=== PATIENT | female | born 1970 | race Caucasian/White ===

== ENCOUNTER 2019-06-14 16:48 | Emergency (ER) | payer BC ==
[2019-06-14 17:16] LABS: EOS # 0.2 (0.04-0.40); EOS % 1.4 % (1.0-5.0); HEMATOCRIT 37.8 % (37.0-47.0); HEMOGLOBIN 13.2 g/dL (12.5-16.0); LYMPH# 2.3 (1.50-4.00); MEAN CELL VOLUME 85 fl (78-100); MEAN CORPUSCULAR HEMOGLOBIN 30 pg (27-31); MEAN CORPUSCULAR HGB CONC 35 g/dL (33-37); MEAN PLATELET VOLUME 10.2 fl (7.4-10.4); MONO # 0.9 (0.20-0.80); PLATELET COUNT 251 K/mm3 (130-400); RED BLOOD COUNT 4.44 M/mm3 (4.10-5.30); RED CELL DISTRIBUTION WIDTH 12.8 % (11.5-14.5); WHITE BLOOD COUNT 12.6 K/mm3 (4.8-10.8)
[2019-06-14 17:17] LABS: NEU # 9.2 (1.40-6.50)
[2019-06-14 17:20] LABS: ALBUMIN 3.9 g/dL (3.5-5.0); POTASSIUM 3.4 mmol/L (3.5-5.1)
[2019-06-14 17:21] LABS: CALCIUM 8.9 mg/dL (8.3-10.5)
[2019-06-14 17:22] LABS: TOTAL PROTEIN 6.8 g/dL (6.4-8.3)
[2019-06-14 17:24] LABS: TOTAL BILIRUBIN 0.9 mg/dL (0.2-1.2)
[2019-06-14 17:36] LABS: URINE APPEARANCE CLOUDY; URINE BILIRUBIN NEGATIVE (NEGATIVE); URINE BLOOD 250 ery/uL (NEGATIVE); URINE COLOR YELLOW; URINE GLUCOSE NEGATIVE (NEGATIVE); URINE KETONE NEGATIVE (NEGATIVE); URINE LEUKOCYTE ESTERASE 1+ (NEGATIVE); URINE NITRATE NEGATIVE (NEGATIVE); URINE PROTEIN(semi-quant) TRACE mg/dL (NEGATIVE); URINE UROBILINOGEN NORMAL (NORMAL)
[2019-06-14 17:37] LABS: URINE MUCUS PRESENT (NOT PRESENT)
[2019-06-14] MEDS ORDERED: NORCO 325 MG-51 TA1 PO (19:10)
[2019-06-14 19:40] VITALS: BP 125/85
== END 2019-06-14 19:40 | disposition home or self-care (01) ==
LOC: ED 16:48
PROVIDERS: Family Medicine
DX: K80.20 Calculus of gallbladder without cholecystitis without obstruction (principal); Z88.0 Allergy status to penicillin

== ENCOUNTER → 2019-06-29 | Day surgery (SDC) | payer BC ==
[2019-06-14 19:40] VITALS: BP 125/85
[~2019-06-29] MED LIST: NORCO 325 MG-51 TA1 PO
== END ==
LOC: MSO 07:06
DX: K80.10 Calculus of gallbladder with chronic cholecystitis without obstruction (principal); Z80.42 Family history of malignant neoplasm of prostate; Z83.3 Family history of diabetes mellitus; Z82.49 Family history of ischemic heart disease and other diseases of the circulatory system
CPT/HCPCS: 00790; J0690; J1100; J1885; J2405; J2704; J2710; J3010; J3490; J7120; Q9967

== ENCOUNTER → 2022-02-14 | Outpatient (CLI) | payer BC | LOC: RAD 14:44 | DX: M19.012 Primary osteoarthritis, left shoulder (principal) ==